=== PATIENT | female | born 1975 | race Caucasian/White ===

== ENCOUNTER 2017-08-07 16:06 | Inpatient (IN) | payer OTHER ==
[2017-08-07 19:10] VITALS: BMI 24.3
--- NOTE | 2017-08-07 21:38 | HP ---
COWS - Scale Resting Pulse: 0= [place] 80 or Below Sweatin= Chills/Flushing Restless Observation: 3= Extraneous Movement Pupil Size: 0= Normal to Room Light Bone or Joint Aches: 2= Severe Diffuse Aches Runny Nose/ Eye Tearin= Runny Nose/Eyes GI Upset > 30mins: 2= Nausea/Diarrhea Tremor Observation: 2= Slight Tremor Visible Yawning Observation: 0= None Anxiety or Irritability: 2=Irritable/Anxious Goose Flesh Skin: 0=Smooth Skin COWS Score: 14 CIWA Score - CIWA Score Nausea/Vomitin-Mild Nausea/No Vomiting Muscle Tremors: 4-Moderate,w/Arms Extend Anxiety: 4-Mod. Anxious/Guarded Agitation: 4-Moderately Restless Paroxysmal Sweats: 1-Minimal Palms Moist Orientation: 0-Oriented Tacttile Disturbances: 0-None Auditory Disturbances: 0-None Visual Disturbances: 0-None Headache: 1-Very Mild CIWA-Ar Total Score: 15 Admission ROS S - HPI Chief Complaint: withdrawal sx Allergies/Adverse Reactions: Allergies Allergy/AdvReac Type Severity Reaction Status Date / Time tramadol Allergy Severe Verified 08/07/17 19:29 History of Present Illness: 41 years old female with long histor yof alcohol heroin cocaine nicotine dependence has seizure since age 11 from head trauma gerd atshma neuropathy and depression is admitted to detox Exam Limitations: No Limitations - Ebola screening Have you traveled outside of the country in the last 21 days: No (N) Have you had contact with anyone from an Ebola affected area: No Have you been sick,other than usual withdrawal symptoms: No Do you have a fever: No - Review of Systems Constitutional: Loss of Appetite, Changes in sleep, Unintentional Wgt. Loss, Unexplained wgt Loss EENT: reports: Blurred Vision (eye glasses) Respiratory: reports: No Symptoms reported Cardiac: reports: No Symptoms Reported GI: reports: Diarrhea, Nausea, Poor Appetite, Poor Fluid Intake, Indigestion, Abdominal cramping : reports: Other (kidney stone 2005 + 2011) Musculoskeletal: reports: Back Pain, Muscle Pain, Neck Pain Integumentary: reports: Change in Color (hands iv heroin) Neuro: reports: Seizure (since age 11), Tremors Endocrine: reports: No Symptoms Reported Hematology: reports: No Symptoms Reported Psychiatric: reports: Judgement Intact, Orientated x3, Anxious, Depressed Other Systems: Reviewed and Negative Patient History - Patient Medical History Hx Anemia: No Hx Asthma: Yes Hx Chronic Obstructive Pulmonary Disease (COPD): No Hx Cancer: No Hx Cardiac Disorders: No Hx Congestive Heart Failure: No Hx Hypertension: No Hx Hypercholesterolemia: No Hx Pacemaker: No HX Cerebrovascular Accident: No Hx Seizures: Yes (since age 11) Hx Dementia: No Hx Diabetes: No Hx Gastrointestinal Disorders: Yes Hx Liver Disease: No Hx Genitourinary Disorders: No Hx Sexually Transmitted Disorders: Yes (gonorrhia) Hx Renal Disease (ESRD): No Hx Thyroid Disease: No Hx Human Immunodeficiency Virus (HIV): No Hx Hepatitis C: No Hx Depression: Yes Hx Suicide Attempt: No Hx Bipolar Disorder: No Hx Schizophrenia: No - Patient Surgical History Past Surgical History: Yes Hx Neurologic Surgery: No Hx Cataract Extraction: No Hx Cardiac Surgery: No Hx Lung Surgery: No Hx Breast Surgery: No Hx Breast Biopsy: No Hx Abdominal Surgery: No Hx Appendectomy: No Hx Cholecystectomy: No Hx Genitourinary Surgery: Yes (ECTOPIC IN 1998) Hx Section: Yes (X 2) Hx Orthopedic Surgery: No Anesthesia Reaction: No - PPD History Previous Implant?: Yes Documented Results: Negative w/proof Implanted On Prior R Admission?: Yes Date: 06/20/16 Results: 0MM PPD to be Administered?: Yes - Reproductive History Patient is a Female of Child Bearing Age (11 -55 yrs old): Yes Last Menstrual Period: 06/21/17 Patient : No - Smoking Cessation Smoking history: Current every day smoker Have you smoked in the past 12 months: Yes Aproximately how many cigarettes per day: 7 Cigars Per Day: 0 Hx Chewing Tobacco Use: No Initiated information on smoking cessation: Yes 'Breaking Loose' booklet given: 08/07/17 - Substance & Tx. History Hx Alcohol Use: Yes Hx Substance Use: Yes Substance Use Type: Alcohol, Cocaine, Heroin, Opiates, Tranquilizers Hx Substance Use Treatment: Yes (06/2016 [facility]) - Substances Abused Heroin Route: Injection Frequency: Daily Amount used: 2 BUNDLES Age of first use: 40 Date of Last Use: 08/07/17 Cocaine Route: Smoking Frequency: 1-2 times per week Amount used: 1 BAG Age of first use: 40 Date of Last Use: 08/07/17 ETOH Route: Oral Frequency: Daily Amount used: VODKA - 2 PINT Age of first use: 39 Date of Last Use: 08/07/17 Family Disease History - Family Disease History Family Disease History: Heart Disease: Father (FATHER WAS AN ALCOHOLIC BEFORE AND STOPPED NOW), Mother (HTN, THROAT CA.), CA: Mother, Other: Father, Mother Admission Physical Exam [facility] - Vital Signs Vital Signs: Vital Signs - 24 hr 08/07/17 19:05 Temperature 98.5 F Pulse Rate 76 Respiratory 18 Rate Blood Pressure 109/57 - Physical General Appearance: Yes: Appropriately Dressed, Mild Distress, Thin, Tremorous, Irritable, Sweating, Anxious HEENTM: Yes: Hearing grossly Normal, Normal ENT Inspection, Normocephalic, Normal Voice Respiratory: Yes: Chest Non-Tender, Lungs Clear, Normal Breath Sounds, No Respiratory Distress, No Accessory Muscle Use Neck: Yes: Supple, Trachea in good position Breast: Yes: Breasts Symetrical Cardiology: Yes: Regular Rate, S1, S2, Murmur Abdominal: Yes: Non Tender, Soft, Increased Bowel Sounds Genitourinary: Yes: Within Normal Limits Back: Yes: Normal Inspection Musculoskeletal: Yes: full range of Motion, Gait Steady, Back pain, Muscle Pain Extremities: Yes: Normal Range of Motion, Non-Tender, Tremors, Other (hands wrists iv heroin) Neurological: Yes: Fully Oriented, Alert, Motor Strength 5/5, Normal Response, Depressed Affect Integumentary: Yes: Warm, Track [place] Lymphatic: Yes: Within Normal Limits - Diagnostic (1) Opioid dependence with withdrawal Current Visit: Yes Status: Acute (2) Alcohol dependence with uncomplicated withdrawal Current Visit: Yes Status: Acute (3) Asthma Current Visit: Yes Status: Chronic Qualifiers: Asthma severity: mild Asthma complication type: uncomplicated (4) Nicotine dependence Current Visit: Yes Status: Acute Qualifiers: Nicotine product type: cigarettes Substance use status: in withdrawal Qualified Code(s): F17.213 - Nicotine dependence, cigarettes, with withdrawal (5) Seizure disorder Current Visit: Yes Status: Chronic Comment: h/o SZ D/O- 2 sz's this week , last sz yesterday. pt seen and treated at [facility] 06/02-06/02/14.condition 3 . Cleared for Admission [facility] - Detox or Rehab [facility] Level of Care: Medically Managed Detox Regimen/Protocol: Methadone/Librium [facility] Breath Alcohol Content Breath Alcohol Content: 0 Urine Pregancy Test - Result Urine Test Results: Negative- NO Line Present Urine Drug Screen - Results Drug Screen Negative: No Urine Drug Screen Results: MOSES-Cocaine, OPI-Opiates, BZO-Benzodiazepines, MTD- Methadone
[2017-08-07] MEDS ORDERED: chlordiazePOXIDE HCL 25 MG CAPSULE PO PRN (21:49)
[2017-08-07] MEDS ORDERED: MENTHOL/PHENOL 1 EACH UD MM PRN (21:49)
[2017-08-07] MEDS ORDERED: MAGNESIUM CITRATE 300 ML BOTTLE PO PRN (21:49)
[2017-08-07] MEDS ORDERED: MAG HYDROX/AL HYDROX/SIMETH 30 ML UNIT-DOSE CUP PO PRN (21:49)
[2017-08-07] MEDS ORDERED: guaiFENesin/D-METHORPHAN HB 10 ML UNIT-DOSE CUPS PO PRN (21:49)
[2017-08-07] MEDS ORDERED: ACETAMINOPHEN 325 MG TABLET (FP) PO PRN (21:49)
[2017-08-07] MEDS ORDERED: P-EPHED 60MG/TRIPROLIDI 2.5MG TABLET PO PRN (21:49)
[2017-08-07] MEDS ORDERED: MAGNESIUM HYDROX 2400MG/30ML ORAL SUSPENSION 30 ML CUP PO PRN (21:49)
[2017-08-07] MEDS ORDERED: LOPERAMIDE HCL 2 MG CAPSULE PO PRN (21:49)
[2017-08-07] MEDS ORDERED: METHADONE HCL 10 MG TABLET (FOR DETOX USE ONLY) PO ONE ×2 (21:49→23:00)
[2017-08-07] MEDS ORDERED: GABAPENTIN 300 MG CAPSULE (FP) PO SCH (22:00)
[2017-08-07] MEDS ORDERED: METHADONE HCL 10 MG TABLET (FOR DETOX USE ONLY) ONE (23:57)
[2017-08-08] MEDS: levETIRAcetam 500 MG TABLET (FP) PO SCH ×3 (00:06→22:27)
[2017-08-08] MEDS: chlordiazePOXIDE HCL 25 MG CAPSULE PO SCH ×5 (00:07→22:28)
[2017-08-08] MEDS: THIAMINE HCL 100 MG TABLET (FP) PO SCH ×2 (00:11→22:27)
[2017-08-08] MEDS: GABAPENTIN 400 MG CAPSULE (FP) PO SCH ×4 (00:16→22:27)
[2017-08-08 01:33] LABS: URINE APPEARANCE SLCLOUDY; URINE BILIRUBIN NEGATIVE (NEGATIVE); URINE BLOOD 3+ (NEGATIVE); URINE COLOR YELLOW; URINE GLUCOSE (UA) NEGATIVE (NEGATIVE); URINE KETONE NEGATIVE (NEGATIVE); URINE LEUK ESTERASE NEGATIVE (NEGATIVE); URINE NITRITE NEGATIVE (NEGATIVE); URINE PROTEIN NEGATIVE (NEGATIVE); URINE UROBILINOGEN NEGATIVE mg/dL (0.2-1.0)
[2017-08-08 01:55] LABS: URINE MUCUS RARE; URINE RBC 216 /hpf (0-3); URINE WBC 10 /hpf (3-5)
--- NOTE | 2017-08-08 07:37 | CONSULT ---
[facility] Psychiatric Consult - Data Date of interview: 08/08/17 Admission source: [facility] Identifying data: This is 41 years old female withno psychiatric hospitalization history intoxicated with: Opioits, Alcohol and Nicotine Substance Abuse History: - Smoking Cessation. Smoking history: Current every day smoker. Have you smoked in the past 12 months: Yes. Aproximately how many cigarettes per day: 7. Cigars Per Day: 0. Hx Chewing Tobacco Use: No. Initiated information on smoking cessation: Yes. 'Breaking Loose' booklet given : 08/07/17. - Substance & Tx. History. Hx Alcohol Use: Yes. Hx Substance Use : Yes. Substance Use Type: Alcohol, Cocaine, Heroin, Opiates, Tranquilizers. Hx Substance Use Treatment: Yes (06/2016 [facility]). - Substances Abused. Heroin. Route: Injection. Frequency: Daily. Amount used: 2 BUNDLES. Age of first use: 40. Date of Last Use: 08/07/17. Cocaine. Route: Smoking. Frequency: 1-2 times per week. Amount used: 1 BAG. Age of first use: 40. Date of Last Use: 08/07/17. ETOH. Route: Oral. Frequency: Daily. Amount used: VODKA - 2 PINT. Age of first use: 39. Date of Last Use: 08/07/17 Medical History: Asthma, Serizure history, Psychiatric History: Patient reports history of anxiety and depression, reports taking prior to admission: Seroquel 50mg po qhs. Remeron 30mg po qhs. Lamictal 200mg poqd. Report SPEP 2015 AT [facility], DENIES SUICIDAL HISTORY Physical/Sexual Abuse/Trauma History: Denies Additional Comment: Seroquel 50mg po qhs. Remeron 30mg po qhs. Lamictal 200mg poqd Mental Status Exam - Mental Status Exam Alert and Oriented to: Person Cognitive Function: Fair Patient Appearance: Unkempt Mood: Anxious Affect: Mood Congruent Patient Behavior: Cooperative Speech Pattern: Appropriate Voice Loudness: Mildly Soft/Quiet Thought Process: Goal Oriented Thought Disorder: Being Controlled Hallucinations: Denies Suicidal Ideation: Denies Homicidal Ideation: Denies Insight/Judgement: Fair Sleep: Difficulty falling asleep Appetite: Weight gain Muscle strength/Tone: Normal Gait/Station: Shuffling Additional Comments: Seroquel 50mg po qhs. Remeron 30mg po qhs. Lamictal 200mg poqd Psychiatric Findings - Problem List ([place] 1, 2,3) (1) Alcohol dependence with uncomplicated withdrawal Current Visit: Yes Status: Acute (2) Nicotine dependence Current Visit: Yes Status: Acute Qualifiers: Nicotine product type: cigarettes Substance use status: in withdrawal Qualified Code(s): F17.213 - Nicotine dependence, cigarettes, with withdrawal (3) Opioid dependence with withdrawal Current Visit: Yes Status: Acute (4) Polysubstance (excluding opioids) dependence Current Visit: No Status: Acute (5) Alcohol dependence Current Visit: No Status: Chronic Qualifiers: Substance use status: in withdrawal (6) Alcohol dependence, episodic drinking behavior Current Visit: No Status: Chronic (7) Anxiety and depression Current Visit: No Status: Chronic (8) Cannabis dependence Current Visit: No Status: Chronic (9) Cocaine dependence Current Visit: No Status: Chronic Qualifiers: Substance use status: uncomplicated Qualified Code(s): F14.20 - Cocaine dependence, uncomplicated (10) Drug-induced mood disorder Current Visit: No Status: Chronic (11) Heroin dependence Current Visit: No Status: Chronic - Initial Treatment Plan Initial Treatment Plan: Seroquel 50mg po qhs. Remeron 30mg po qhs. Lamictal 200mg poqd
[2017-08-08 09:00] LABS: URINE LEUK ESTERASE Negative (NEGATIVE)
--- NOTE | 2017-08-08 09:54 | EKG ---
Test Reason : Blood Pressure : / mmHG Vent. Rate : 072 BPM Atrial Rate : 072 BPM P-R Int : 164 ms QRS Dur : 086 ms QT Int : 416 ms P-R-T Axes : 068 075 056 degrees QTc Int : 455 ms NORMAL SINUS RHYTHM POSSIBLE LEFT ATRIAL ENLARGEMENT BORDERLINE ECG NO PREVIOUS ECGS AVAILABLE Confirmed by CICI SILVA, CHARLENE ([id number]) on 08/08/2017 9:54:02 AM Referred By: Confirmed By:CHARLENE BOLANOS MD
[2017-08-08] MEDS ORDERED: METHADONE HCL 10 MG TABLET (FOR DETOX USE ONLY) PO SCH (10:00)
--- NOTE | 2017-08-08 10:52 | PN ---
[facility] CIWA - CIWA Score Nausea/Vomitin Muscle Tremors: 3 Anxiety: 3 Agitation: 2 Paroxysmal Sweats: 3 Orientation: 0-Oriented Tacttile Disturbances: 1-Very Mild Itch/Numbness Auditory Disturbances: 0-None Visual Disturbances: 0-None Headache: 0-None Present CIWA-Ar Total Score: 15 BHS COWS - Scale Resting Pulse: 0= [place] 80 or Below Sweatin=Flushed/Facial Moisture Restless Observation: 1= Difficult to Sit Still Pupil Size: 1= Pupils >than Normal Bone or Joint Aches: 2= Severe Diffuse Aches Runny Nose/ Eye Tearin= Nasal Congestion GI Upset > 30mins: 2= Nausea/Diarrhea Tremor Observation of Outstretched Hands: 2= Slight Tremor Visible Yawning Observation: 0= None Anxiety or Irritability: 2=Irritable/Anxious Goose Flesh Skin: 0=Smooth Skin COWS Score: 13 BHS Progress Note (SOAP) Subjective: interrupted sleep, sweats, shakes, Objective: 08/08/17 10:49 Vital Signs Temperature 98.1 F 08/08/17 06:07 Pulse Rate 76 08/08/17 06:07 Respiratory Rate 18 08/08/17 06:07 Blood Pressure 102/52 08/08/17 06:07 O2 Sat by Pulse Oximetry (%) Laboratory Tests 08/07/17 23:53 Urine Color Yellow Urine Appearance Slcloudy Urine pH 5.0 Ur Specific [place] 1.017 Urine Protein Negative Urine Glucose (UA) Negative Urine Ketones Negative Urine Blood 3+ H Urine Nitrite Negative Urine Bilirubin Negative Urine Urobilinogen Negative Ur Leukocyte Esterase Negative Urine WBC (Auto) 10 Urine RBC (Auto) 216 Ur Epithelial Cells Rare Urine Mucus Rare pt aox3 , in nad Assessment: 08/08/17 10:50 withdrawal sx;s Plan: cont. detox increase fluids flexeril 10mg tid repeat u/a
[2017-08-08] MEDS: RANITIDINE HCL 150 MG TABLET (FP) PO SCH (12:30)
[2017-08-08] MEDS: PRENATAL VITAMINS W/ FOLIC ACID TABLET (FP) PO SCH (12:30)
[2017-08-08] MEDS: NICOTINE 14 MG/24 HOURS TOPICAL PATCH TD SCH (12:31)
[2017-08-08] MEDS: lamoTRIgine 100 MG TABLET (FP) PO SCH (12:32)
[2017-08-08 17:48] LABS: URINE APPEARANCE CLOUDY; URINE BILIRUBIN NEGATIVE (NEGATIVE); URINE BLOOD NEGATIVE (NEGATIVE); URINE COLOR YELLOW; URINE GLUCOSE (UA) NEGATIVE (NEGATIVE); URINE KETONE NEGATIVE (NEGATIVE); URINE NITRITE NEGATIVE (NEGATIVE); URINE PROTEIN NEGATIVE (NEGATIVE); URINE UROBILINOGEN NEGATIVE mg/dL (0.2-1.0)
[2017-08-08 17:52] LABS: URINE LEUK ESTERASE 1+ (NEGATIVE)
[2017-08-08] MEDS: NICOTINE POLACRILEX 2 MG GUM BC PRN ×2 (17:58→22:30)
[2017-08-08 18:06] LABS: URINE BACTERIA RARE /hpf (NONE SEEN); URINE HYALINE CAST 1 /lpf; URINE MUCUS RARE; URINE RBC 2 /hpf (0-3); URINE WBC 7 /hpf (3-5)
[2017-08-08 21:20] LABS: URINE LEUK ESTERASE Negative (NEGATIVE)
[2017-08-08] MEDS: MIRTAZAPINE 30 MG TABLET (FP) PO SCH (22:27)
[2017-08-08] MEDS: QUEtiapine FUMARATE 50 MG TABLET PO SCH (22:27)
[2017-08-09] MEDS: GABAPENTIN 400 MG CAPSULE (FP) PO SCH ×3 (06:42→22:31)
[2017-08-09] MEDS: chlordiazePOXIDE HCL 25 MG CAPSULE PO SCH ×3 (06:42→17:38)
[2017-08-09 09:56] LABS: MCH 26.3 pg (25.7-33.7); MCHC 31.8 g/dl (32.0-36.0); MEAN CELL VOLUME 82.6 fl (80-96); MEAN PLT VOLUME 8.8 fl (7.5-11.1); PLATELET COUNT 223 K/MM3 (134-434); RDW 15.4 % (11.6-15.6)
[2017-08-09 10:08] LABS: BILIRUBIN,TOTAL 0.3 mg/dL (0.2-1.0); SGOT/AST 13 U/L (15-37); SGPT/ALT 21 U/L (12-78); TOT PROT 6.3 g/dl (6.4-8.2)
[2017-08-09 10:13] LABS: ALBUMIN 2.9 g/dl (3.4-5.0); ALK PHOS 56 U/L (45-117); ANION GAP 5 (8-16); CALCIUM 8.5 mg/dL (8.5-10.1); CO2 30 mmol/L (21-32); CREATININE 0.7 mg/dL (0.55-1.02); GLUCOSE,RANDOM 78 mg/dL (74-106)
[2017-08-09] MEDS: lamoTRIgine 100 MG TABLET (FP) PO SCH (10:40)
[2017-08-09] MEDS: PRENATAL VITAMINS W/ FOLIC ACID TABLET (FP) PO SCH (10:40)
[2017-08-09] MEDS: levETIRAcetam 500 MG TABLET (FP) PO SCH ×2 (10:40→22:30)
[2017-08-09] MEDS: RANITIDINE HCL 150 MG TABLET (FP) PO SCH (10:40)
[2017-08-09] MEDS: NAPROXEN 500 MG TABLET (FP) PO PRN (10:40)
[2017-08-09] MEDS: METHADONE HCL 5 MG TABLET (FOR DETOX USE ONLY) PO SCH (10:40)
[2017-08-09] MEDS: NICOTINE 14 MG/24 HOURS TOPICAL PATCH TD SCH (10:41)
[2017-08-09] MEDS: hydrOXYzine PAMOATE 50 MG CAPSULE (FP) PO PRN (10:42)
[2017-08-09] MEDS: NICOTINE POLACRILEX 2 MG GUM BC PRN ×3 (10:46→18:04)
--- NOTE | 2017-08-09 11:01 | PN ---
S CIWA - CIWA Score Nausea/Vomitin Muscle Tremors: 3 Anxiety: 3 Agitation: 3 Paroxysmal Sweats: 3 Orientation: 0-Oriented Tacttile Disturbances: 0-None Auditory Disturbances: 0-None Visual Disturbances: 0-None Headache: 4-Moderately Severe CIWA-Ar Total Score: 19 BHS COWS - Scale Resting Pulse: 1= [place] 81-100 Sweatin= Chills/Flushing Restless Observation: 1= Difficult to Sit Still Pupil Size: 1= Pupils >than Normal Bone or Joint Aches: 1= Mild Discomfort Runny Nose/ Eye Tearin= Nasal Congestion GI Upset > 30mins: 2= Nausea/Diarrhea Tremor Observation of Outstretched Hands: 2= Slight Tremor Visible Yawning Observation: 1= 1-2x During Session Anxiety or Irritability: 2=Irritable/Anxious Goose Flesh Skin: 3=Piloerection COWS Score: 16 S Progress Note (SOAP) Subjective: nasue, sweats, interrupted sleep, anxiety, tremors julien Objective: 08/09/17 11:00 Vital Signs - 24 hr 08/08/17 08/08/17 08/08/17 11:05 13:08 16:52 Temperature 98.2 F 98.2 F 98.2 F Pulse Rate 78 82 73 Respiratory 16 18 18 Rate Blood Pressure 97/48 113/69 108/56 08/08/17 08/09/17 08/09/17 22:08 00:30 03:30 Temperature 97.9 F Pulse Rate 71 Respiratory 18 18 18 Rate Blood Pressure 107/70 08/09/17 08/09/17 06:21 09:23 Temperature 97.7 F 97.9 F Pulse Rate 60 84 Respiratory 16 18 Rate Blood Pressure 114/68 129/76 Laboratory Tests 08/07/17 08/08/17 08/09/17 23:53 13:30 07:00 WBC 4.0 D RBC 4.72 Hgb 12.4 Hct 39.0 MCV 82.6 MCH 26.3 MCHC 31.8 L RDW 15.4 Plt Count 223 D MPV 8.8 Sodium Potassium Chloride Carbon Dioxide Anion Gap BUN Creatinine Creat Clearance w eGFR Random Glucose Calcium Total Bilirubin AST ALT Alkaline Phosphatase Total Protein Albumin Urine Color Yellow Yellow Urine Appearance Slcloudy Cloudy Urine pH 5.0 7.0 D Ur Specific [place] 1.017 1.018 Urine Protein Negative Negative Urine Glucose (UA) Negative Negative Urine Ketones Negative Negative Urine Blood 3+ H Negative Urine Nitrite Negative Negative Urine Bilirubin Negative Negative Urine Urobilinogen Negative Negative Ur Leukocyte Esterase Negative Negative Urine WBC (Auto) 10 7 Urine RBC (Auto) 216 2 Ur Epithelial Cells Rare Rare Urine Bacteria Rare Hyaline Casts 1 Urine Mucus Rare Rare 08/09/17 07:00 WBC RBC Hgb Hct MCV MCH MCHC RDW Plt Count MPV Sodium 144 Potassium 4.3 D Chloride 109 H Carbon Dioxide 30 D Anion Gap 5 L BUN 17 D Creatinine 0.7 Creat Clearance w eGFR > 60 Random Glucose 78 D Calcium 8.5 Total Bilirubin 0.3 D AST 13 L ALT 21 D Alkaline Phosphatase 56 D Total Protein 6.3 L D Albumin 2.9 L D Urine Color Urine Appearance Urine pH Ur Specific [place] Urine Protein Urine Glucose (UA) Urine Ketones Urine Blood Urine Nitrite Urine Bilirubin Urine Urobilinogen Ur Leukocyte Esterase Urine WBC (Auto) Urine RBC (Auto) Ur Epithelial Cells Urine Bacteria Hyaline Casts Urine Mucus Assessment: 08/09/17 11:01 [place] sx, cont detox, neurontin for julien, fluids, encourage ambualtion
[2017-08-09 11:06] LABS: HIV 1 & 2 AB NEGATIVE; HIV 1 AGp24 NEGATIVE
[2017-08-09] MEDS: ALBUTEROL SO4 18 GM HFA INHALER IH PRN (12:11)
--- NOTE | 2017-08-09 14:42 | PN ---
Psychiatric Progress Note Vital Signs: Vital Signs Period Temp Pulse Resp BP Sys/Hassan Pulse Ox Last 24 Hr 97.7 F-98.2 F 60-84 16-18 107-129/56-76 Date of Session: 08/09/17 Chief Complaint:: Anxiety, agitation HPI: Patient reprots agitation and insomnia, reports usually taking SEROQUEL 100MG PO QHS Current Medications: Active Medications Generic Name Dose Route Start Last Admin Trade Name Freq PRN Reason Stop Dose Admin Acetaminophen 650 mg 08/07/17 21:49 Tylenol - PO Q4H PRN FEVER OR PAIN Al Hydroxide/Mg Hydroxide 30 ml 08/07/17 21:49 Mylanta Oral Suspension - PO Q6H PRN DYSPEPSIA Albuterol Sulfate 2 puff 08/07/17 21:51 08/09/17 12:11 Ventolin Hfa Inhaler - IH 2 inhaler Q4H PRN Administration SHORT OF BREATH/WHEEZING Chlordiazepoxide HCl 25 mg 08/08/17 23:00 08/09/17 10:41 Librium - PO 08/09/17 17:01 25 mg [id number] NICHOLAS Administration Chlordiazepoxide HCl 15 mg 08/09/17 23:00 Librium - PO 08/10/17 17:01 [id number] NICHOLAS Chlordiazepoxide HCl 10 mg 08/10/17 23:00 Librium - PO 08/11/17 17:01 [id number] NICHOLAS Chlordiazepoxide HCl 25 mg 08/07/17 21:49 Librium - PO 08/10/17 21:49 Q4H PRN WITHDRAWAL(CONT SUBST) Eucalyptus/Menthol/Phenol/Sorbitol 1 each 08/07/17 21:49 Cepastat Lozenge - MM Q4H PRN SORE THROAT Gabapentin 800 mg 08/08/17 00:15 08/09/17 06:42 Neurontin - PO 800 mg TID NICHOLAS Administration Guaifenesin 10 ml 08/07/17 21:49 Robitussin Dm - PO Q6H PRN COUGH Hydroxyzine Pamoate 50 mg 08/07/17 22:04 08/09/17 10:42 Vistaril - PO 50 mg Q6H PRN Administration ANXIETY Lamotrigine 200 mg 08/08/17 10:00 08/09/17 10:40 Lamictal - PO 200 mg DAILY NICHOLAS Administration Levetiracetam 1,000 mg 08/07/17 22:00 08/09/17 10:40 Keppra - PO 1,000 mg BID NICHOLAS Administration Loperamide HCl 4 mg 08/07/17 21:49 Imodium - PO Q6H PRN DIARRHEA Magnesium Citrate 300 ml 08/07/17 21:49 Citroma - PO Q48H PRN CONSTIPATION Magnesium Hydroxide 30 ml 08/07/17 21:49 Milk Of Magnesia - PO DAILY PRN CONSTIPATION Methadone HCl 15 mg 08/09/17 10:00 08/09/17 10:40 Dolophine - PO 08/10/17 10:01 15 mg DAILY NICHOLAS Administration Methadone HCl 5 mg 08/12/17 06:00 Dolophine - PO 08/12/17 06:01 DAILY@0600 NICHOLAS Methadone HCl 10 mg 08/11/17 10:00 Dolophine - PO 08/11/17 10:01 DAILY NICHOLAS Mirtazapine 30 mg 08/08/17 22:00 08/08/17 22:27 Remeron - PO 30 mg HS NICHOLAS Administration Naproxen 500 mg 08/07/17 21:52 08/09/17 10:40 Naprosyn - PO 500 mg BID PRN Administration BACK PAIN Nicotine 14 mg 08/08/17 10:00 08/09/17 10:41 Nicoderm Patch - TD 14 mg DAILY NICHOLAS Administration Nicotine Polacrilex 2 mg 08/07/17 21:49 08/09/17 14:13 Nicorette Gum - BC 2 mg Q2H PRN Administration NICOTINE REPLACEMENT RX Multivit/Folic Acid/Iron 1 tab 08/08/17 10:00 08/09/17 10:40 Vitamins (Sjr) - PO 1 tab DAILY NICHOLAS Administration Pseudoephedrine/Triprolidine 1 combo 08/07/17 21:49 08/09/17 12:11 Actifed - PO 1 combo TID PRN Administration NASAL CONGESTION Quetiapine Fumarate 50 mg 08/08/17 22:00 08/08/17 22:27 Seroquel - PO 50 mg HS NICHOLAS Administration Ranitidine HCl 150 mg 08/08/17 10:00 08/09/17 10:40 Zantac - PO 150 mg DAILY NICHOLAS Administration Thiamine HCl 100 mg 08/07/17 22:00 08/08/17 22:27 Vitamin B1 - PO 100 mg HS NICHOLAS Administration Medication(s) Change(s): SEROQUEL 100MG PO QHS Mental Status Exam - Mental Status Exam Alert and Oriented to: Person Cognitive Function: Fair Patient Appearance: Unkempt Mood: Anxious Affect: Labile Patient Behavior: Agitated Speech Pattern: Appropriate Voice Loudness: Mildly Loud Thought Process: Goal Oriented Thought Disorder: Being Controlled Hallucinations: Denies Suicidal Ideation: Denies Homicidal Ideation: Denies Insight/Judgement: Fair Sleep: Difficulty falling asleep Appetite: Weight gain Muscle strength/Tone: Mild Hypertonicity Gait/Station: Normal Additional Comments: SEROQUEL 100MG PO QHS Psychiatric Treatment Plan - Problem List (1) Alcohol dependence with uncomplicated withdrawal Current Visit: Yes (2) Nicotine dependence Current Visit: Yes Qualifiers: Nicotine product type: cigarettes Substance use status: in withdrawal Qualified Code(s): F17.213 - Nicotine dependence, cigarettes, with withdrawal (3) Opioid dependence with withdrawal Current Visit: Yes (4) Polysubstance (excluding opioids) dependence Current Visit: No (5) Alcohol dependence Current Visit: No Qualifiers: Substance use status: in withdrawal (6) Alcohol dependence, episodic drinking behavior Current Visit: No (7) Anxiety and depression Current Visit: No (8) Cannabis dependence Current Visit: No (9) Cocaine dependence Current Visit: No Qualifiers: Substance use status: uncomplicated Qualified Code(s): F14.20 - Cocaine dependence, uncomplicated (10) Drug-induced mood disorder Current Visit: No (11) Heroin dependence Current Visit: No Initial treatment plan: SEROQUEL 100MG PO QHS
[2017-08-09] MEDS: THIAMINE HCL 100 MG TABLET (FP) PO SCH (22:30)
[2017-08-09] MEDS: QUEtiapine FUMARATE 50 MG TABLET PO SCH (22:31)
[2017-08-09] MEDS: chlordiazePOXIDE 5 MG CAPSULE PO SCH (22:31)
[2017-08-09] MEDS: MIRTAZAPINE 30 MG TABLET (FP) PO SCH (22:31)
[2017-08-10] MEDS: chlordiazePOXIDE 5 MG CAPSULE PO SCH ×3 (05:24→17:33)
[2017-08-10] MEDS: GABAPENTIN 400 MG CAPSULE (FP) PO SCH ×3 (05:25→22:25)
[2017-08-10] MEDS: NICOTINE POLACRILEX 2 MG GUM BC PRN ×4 (05:28→20:38)
[2017-08-10] MEDS ORDERED: diphenhydrAMINE HCL 25 MG CAPSULE (FP) PO PRN (09:22)
[2017-08-10] MEDS ORDERED: SODIUM CHLORIDE NASAL SPRAY 44 ML BOTTLE NS ONE (10:00)
[2017-08-10] MEDS: PRENATAL VITAMINS W/ FOLIC ACID TABLET (FP) PO SCH (10:40)
[2017-08-10] MEDS: RANITIDINE HCL 150 MG TABLET (FP) PO SCH (10:41)
[2017-08-10] MEDS: lamoTRIgine 100 MG TABLET (FP) PO SCH (10:41)
[2017-08-10] MEDS: hydrOXYzine PAMOATE 50 MG CAPSULE (FP) PO PRN ×2 (10:41→20:38)
[2017-08-10] MEDS: levETIRAcetam 500 MG TABLET (FP) PO SCH ×2 (10:41→22:25)
[2017-08-10] MEDS: NAPROXEN 500 MG TABLET (FP) PO PRN (10:41)
[2017-08-10] MEDS: METHADONE HCL 5 MG TABLET (FOR DETOX USE ONLY) PO SCH (10:41)
[2017-08-10] MEDS: NICOTINE 14 MG/24 HOURS TOPICAL PATCH TD SCH (10:42)
--- NOTE | 2017-08-10 11:11 | PN ---
BHS Progress Note (SOAP) Subjective: sweats nasal congestion agitation body aches Objective: 08/10/17 11:24 Vital Signs Temperature 98.4 F 08/10/17 10:03 Pulse Rate 87 08/10/17 10:03 Respiratory Rate 18 08/10/17 10:03 Blood Pressure 144/86 08/10/17 10:03 O2 Sat by Pulse Oximetry (%) [id number] ambulating no acute distress Assessment: 08/10/17 11:24 withdrawal sx Plan: continue detox increase fluids ocean spray benadryl prn
[2017-08-10] MEDS: SODIUM CHLORIDE NASAL SPRAY 44 ML BOTTLE NS SCH ×2 (14:40→22:27)
[2017-08-10] MEDS: QUEtiapine FUMARATE 50 MG TABLET PO SCH (22:24)
[2017-08-10] MEDS: MIRTAZAPINE 30 MG TABLET (FP) PO SCH (22:25)
[2017-08-10] MEDS: chlordiazePOXIDE HCL 10 MG CAPSULE PO SCH (22:25)
[2017-08-10] MEDS: THIAMINE HCL 100 MG TABLET (FP) PO SCH (22:27)
[2017-08-11] MEDS: GABAPENTIN 400 MG CAPSULE (FP) PO SCH ×3 (05:29→22:36)
[2017-08-11] MEDS: chlordiazePOXIDE HCL 10 MG CAPSULE PO SCH ×3 (05:29→18:18)
[2017-08-11] MEDS: SODIUM CHLORIDE NASAL SPRAY 44 ML BOTTLE NS SCH ×3 (05:33→22:37)
[2017-08-11] MEDS: NICOTINE POLACRILEX 2 MG GUM BC PRN ×4 (05:33→20:11)
[2017-08-11] MEDS ORDERED: METHADONE HCL 10 MG TABLET (FOR DETOX USE ONLY) PO SCH (10:00)
[2017-08-11] MEDS: RANITIDINE HCL 150 MG TABLET (FP) PO SCH (10:43)
[2017-08-11] MEDS: lamoTRIgine 100 MG TABLET (FP) PO SCH (10:43)
[2017-08-11] MEDS: levETIRAcetam 500 MG TABLET (FP) PO SCH ×2 (10:43→22:37)
[2017-08-11] MEDS: NAPROXEN 500 MG TABLET (FP) PO PRN (10:44)
[2017-08-11] MEDS: PRENATAL VITAMINS W/ FOLIC ACID TABLET (FP) PO SCH (10:44)
[2017-08-11] MEDS: ALBUTEROL SO4 18 GM HFA INHALER IH PRN (10:47)
[2017-08-11] MEDS: NICOTINE 14 MG/24 HOURS TOPICAL PATCH TD SCH (10:50)
[2017-08-11] MEDS: hydrOXYzine PAMOATE 50 MG CAPSULE (FP) PO PRN (14:20)
--- NOTE | 2017-08-11 16:12 | PN ---
BHS Progress Note (SOAP) Subjective: Sweating,interrupted sleep,restless Objective: 08/11/17 16:11 Vital Signs - 8 hr 08/11/17 08/11/17 10:00 15:31 Temperature 98.2 F 98.2 F Pulse Rate 86 95 H Respiratory 18 20 Rate Blood Pressure 141/89 138/79 Laboratory Tests 08/07/17 08/08/17 08/09/17 23:53 13:30 07:00 WBC RBC Hgb Hct MCV MCH MCHC RDW Plt Count MPV Sodium Potassium Chloride Carbon Dioxide Anion Gap BUN Creatinine Creat Clearance w eGFR Random Glucose Calcium Total Bilirubin AST ALT Alkaline Phosphatase Total Protein Albumin Urine Color Yellow Yellow Urine Appearance Slcloudy Cloudy Urine pH 5.0 7.0 D Ur Specific [place] 1.017 1.018 Urine Protein Negative Negative Urine Glucose (UA) Negative Negative Urine Ketones Negative Negative Urine Blood 3+ H Negative Urine Nitrite Negative Negative Urine Bilirubin Negative Negative Urine Urobilinogen Negative Negative Ur Leukocyte Esterase Negative Negative Urine WBC (Auto) 10 7 Urine RBC (Auto) 216 2 Ur Epithelial Cells Rare Rare Urine Bacteria Rare Hyaline Casts 1 Urine Mucus Rare Rare RPR Titer Hepatitis C Antibody <0.1 HIV 1&2 Antibody Screen HIV P24 Antigen 08/09/17 08/09/17 08/09/17 07:00 07:00 07:00 WBC 4.0 D RBC 4.72 Hgb 12.4 Hct 39.0 MCV 82.6 MCH 26.3 MCHC 31.8 L RDW 15.4 Plt Count 223 D MPV 8.8 Sodium 144 Potassium 4.3 D Chloride 109 H Carbon Dioxide 30 D Anion Gap 5 L BUN 17 D Creatinine 0.7 Creat Clearance w eGFR > 60 Random Glucose 78 D Calcium 8.5 Total Bilirubin 0.3 D AST 13 L ALT 21 D Alkaline Phosphatase 56 D Total Protein 6.3 L D Albumin 2.9 L D Urine Color Urine Appearance Urine pH Ur Specific [place] Urine Protein Urine Glucose (UA) Urine Ketones Urine Blood Urine Nitrite Urine Bilirubin Urine Urobilinogen Ur Leukocyte Esterase Urine WBC (Auto) Urine RBC (Auto) Ur Epithelial Cells Urine Bacteria Hyaline Casts Urine Mucus RPR Titer Hepatitis C Antibody HIV 1&2 Antibody Screen Negative HIV P24 Antigen Negative 08/09/17 07:00 WBC RBC Hgb Hct MCV MCH MCHC RDW Plt Count MPV Sodium Potassium Chloride Carbon Dioxide Anion Gap BUN Creatinine Creat Clearance w eGFR Random Glucose Calcium Total Bilirubin AST ALT Alkaline Phosphatase Total Protein Albumin Urine Color Urine Appearance Urine pH Ur Specific [place] Urine Protein Urine Glucose (UA) Urine Ketones Urine Blood Urine Nitrite Urine Bilirubin Urine Urobilinogen Ur Leukocyte Esterase Urine WBC (Auto) Urine RBC (Auto) Ur Epithelial Cells Urine Bacteria Hyaline Casts Urine Mucus RPR Titer Nonreactive Hepatitis C Antibody HIV 1&2 Antibody Screen HIV P24 Antigen labs noted Assessment: 08/11/17 16:11 Withdrawal sx. Plan: Continue detox
[2017-08-11] MEDS: MIRTAZAPINE 30 MG TABLET (FP) PO SCH (22:36)
[2017-08-11] MEDS: THIAMINE HCL 100 MG TABLET (FP) PO SCH (22:36)
[2017-08-11] MEDS: QUEtiapine FUMARATE 50 MG TABLET PO SCH (22:37)
[2017-08-12] MEDS: GABAPENTIN 400 MG CAPSULE (FP) PO SCH (05:24)
[2017-08-12] MEDS: SODIUM CHLORIDE NASAL SPRAY 44 ML BOTTLE NS SCH (05:25)
[2017-08-12] MEDS: hydrOXYzine PAMOATE 50 MG CAPSULE (FP) PO PRN (05:26)
[2017-08-12] MEDS ORDERED: METHADONE HCL 5 MG TABLET (FOR DETOX USE ONLY) PO SCH (06:00)
[2017-08-12 06:54] VITALS: BP 126/76; PULSE 76; TEMP 97.6
--- NOTE | 2017-08-12 09:18 | DS ---
[facility] Detox Discharge Summary Admission Date: 08/07/17 Discharge Date: 08/12/17 - History Present History: Alcohol Dependence, Opioid Dependence Pertinent Past History: Asthma - Physical Exam Results Vital Signs: Vital Signs Temperature 97.6 F 08/12/17 06:54 Pulse Rate 76 08/12/17 06:54 Respiratory Rate 18 08/12/17 06:54 Blood Pressure 126/76 08/12/17 06:54 O2 Sat by Pulse Oximetry (%) Pertinent Admission Physical Exam Findings: Withdrawal sx. Laboratory Last Values WBC 4.0 K/mm3 (4.0-10.0) D 08/09/17 07:00 RBC 4.72 M/mm3 (3.60-5.2) 08/09/17 07:00 Hgb 12.4 GM/dL (10.7-15.3) 08/09/17 07:00 Hct 39.0 % (32.4-45.2) 08/09/17 07:00 MCV 82.6 fl (80-96) 08/09/17 07:00 MCH 26.3 pg (25.7-33.7) 08/09/17 07:00 MCHC 31.8 g/dl (32.0-36.0) L 08/09/17 07:00 RDW 15.4 % (11.6-15.6) 08/09/17 07:00 Plt Count 223 K/MM3 (134-434) D 08/09/17 07:00 MPV 8.8 fl (7.5-11.1) 08/09/17 07:00 Sodium 144 mmol/L (136-145) 08/09/17 07:00 Potassium 4.3 mmol/L (3.5-5.1) D 08/09/17 07:00 Chloride 109 mmol/L (98-107) H 08/09/17 07:00 Carbon Dioxide 30 mmol/L (21-32) D 08/09/17 07:00 Anion Gap 5 (8-16) L 08/09/17 07:00 BUN 17 mg/dL (7-18) D 08/09/17 07:00 Creatinine 0.7 mg/dL (0.55-1.02) 08/09/17 07:00 Creat Clearance w eGFR > 60 (>60) 08/09/17 07:00 Random Glucose 78 mg/dL (74-106) D 08/09/17 07:00 Calcium 8.5 mg/dL (8.5-10.1) 08/09/17 07:00 Total Bilirubin 0.3 mg/dL (0.2-1.0) D 08/09/17 07:00 AST 13 U/L (15-37) L 08/09/17 07:00 ALT 21 U/L (12-78) D 08/09/17 07:00 Alkaline Phosphatase 56 U/L (45-117) D 08/09/17 07:00 Total Protein 6.3 g/dl (6.4-8.2) L D 08/09/17 07:00 Albumin 2.9 g/dl (3.4-5.0) L D 08/09/17 07:00 Urine Color Yellow 08/08/17 13:30 Urine Appearance Cloudy 08/08/17 13:30 Urine pH 7.0 (5.0-8.0) D 08/08/17 13:30 Ur Specific [place] 1.018 (1.001-1.035) 08/08/17 13:30 Urine Protein Negative (NEGATIVE) 08/08/17 13:30 Urine Glucose (UA) Negative (NEGATIVE) 08/08/17 13:30 Urine Ketones Negative (NEGATIVE) 08/08/17 13:30 Urine Blood Negative (NEGATIVE) 08/08/17 13:30 Urine Nitrite Negative (NEGATIVE) 08/08/17 13:30 Urine Bilirubin Negative (NEGATIVE) 08/08/17 13:30 Urine Urobilinogen Negative mg/dL (0.2-1.0) 08/08/17 13:30 Ur Leukocyte Esterase Negative (NEGATIVE) 08/08/17 13:30 Urine WBC (Auto) 7 /hpf (3-5) 08/08/17 13:30 Urine RBC (Auto) 2 /hpf (0-3) 08/08/17 13:30 Ur Epithelial Cells Rare /HPF (FEW) 08/08/17 13:30 Urine Bacteria Rare /hpf (NONE SEEN) 08/08/17 13:30 Hyaline Casts 1 /lpf 08/08/17 13:30 Urine Mucus Rare 08/08/17 13:30 RPR Titer Nonreactive (NONREACTIVE) 08/09/17 07:00 Hepatitis C Antibody <0.1 s/co ratio (0.0-0.9) 08/09/17 07:00 HIV 1&2 Antibody Screen Negative 08/09/17 07:00 HIV P24 Antigen Negative 08/09/17 07:00 labs noted - Treatment Hospital Course: Detox Protocol Followed, Detoxed Safely, Responded well, Discharged Condition Good, Rehab Referral Accepted Patient has Accepted a Rehab Referral to: [facility] - Medication Discharge Medications: Ambulatory Orders Albuterol Sulfate Inhaler - [Ventolin HFA Inhaler -] 2 inh IH Q4H PRN #1 inh Ibuprofen [Motrin -] 600 mg PO TID 06/03/14 Levetiracetam [Keppra -] 1,000 mg PO BID 06/03/14 Ranitidine HCl [Zantac] 150 mg PO DAILY 06/03/14 Gabapentin [Neurontin -] 800 mg PO TID #90 capsule 06/19/16 Lamotrigine [Lamictal] 200 mg PO DAILY 08/07/17 Quetiapine Fumarate [Seroquel -] 50 mg PO HS 08/07/17 Trazodone HCl [Desyrel -] 50 mg PO HS 08/07/17 Lamotrigine [Lamictal -] 200 mg PO DAILY #30 tablet 08/08/17 Mirtazapine [Remeron -] 30 mg PO HS #30 tablet 08/08/17 Quetiapine Fumarate [Seroquel -] 50 mg PO HS #30 tablet 08/08/17 - Diagnosis (1) Alcohol dependence with uncomplicated withdrawal Current Visit: Yes Status: Acute (2) Opioid dependence with withdrawal Current Visit: Yes Status: Chronic (3) Asthma Current Visit: Yes Status: Chronic Qualifiers: Asthma severity: mild Asthma complication type: uncomplicated (4) Nicotine dependence Current Visit: Yes Status: Chronic Qualifiers: Nicotine product type: cigarettes Substance use status: in withdrawal Qualified Code(s): F17.213 - Nicotine dependence, cigarettes, with withdrawal (5) Seizure disorder Current Visit: Yes Status: Chronic (6) Drug-induced mood disorder Current Visit: Yes Status: Chronic - AMA Did Patient Leave Against Medical Advice: No
[2017-08-12] MEDS: lamoTRIgine 100 MG TABLET (FP) PO SCH (10:48)
[2017-08-12] MEDS: NAPROXEN 500 MG TABLET (FP) PO PRN (10:48)
[2017-08-12] MEDS: levETIRAcetam 500 MG TABLET (FP) PO SCH (10:48)
[2017-08-12] MEDS: PRENATAL VITAMINS W/ FOLIC ACID TABLET (FP) PO SCH (10:49)
[2017-08-12] MEDS: RANITIDINE HCL 150 MG TABLET (FP) PO SCH (10:49)
== END 2017-08-12 10:38 | disposition home or self-care (01) | DRG 773 ==
LOC: YASAS 16:06 → Y6N 22:14
PROVIDERS: ADMIT Internal Medicine; ATTEND Internal Medicine
PROC: HZ2ZZZZ Detoxification Services for Substance Abuse Treatment (ICD-10-PCS; principal; 2017-08-07)
DX: F11.23 Opioid dependence with withdrawal (principal); F10.230 Alcohol dependence with withdrawal, uncomplicated; F17.213 Nicotine dependence, cigarettes, with withdrawal; F19.24 Other psychoactive substance dependence with psychoactive substance-induced mood disorder; F41.8 Other specified anxiety disorders; J45.30 Mild persistent asthma, uncomplicated; G40.909 Epilepsy, unspecified, not intractable, without status epilepticus; Z88.8 Allergy status to other drugs, medicaments and biological substances; Z87.42 Personal history of other diseases of the female genital tract; Z59.0 Homelessness
CPT/HCPCS: 36415; 80053; 81003; 81015; 85027; 86593; 86803; 87389; 93005; 93010